=== PATIENT | male | born 1935 | race Caucasian/White ===

== ENCOUNTER 2016-04-23 12:51 | Inpatient (IN) | payer MEDICARE, OTHER ==
[~2016-04-23] VITALS: Ht 182.9 cm; Wt 80.0 kg
[~2016-04-23 12:51] MED LIST: FERROUS SU325 MG/TAB PO; FOLIC ACID 40400 MCG PO; VITAMIN C PO
[2016-05-17] MEDS ORDERED: VITAMIN C500 MG PO (12:28)
[2016-05-17] MEDS ORDERED: NORVASC 5MG5 MG/TAB PO (12:29)
[2016-06-07] VITALS (12 sets, daily range): BP systolic 114–149; BP diastolic 64–89; PULSE 51–87; TEMP 97–99
[2016-06-08] VITALS (7 sets, daily range): BP systolic 129–176; BP diastolic 67–89; PULSE 66–83; TEMP 98.1–99.9
[2016-06-08 06:12] LABS: HEMATOCRIT 39.5 % (42.0-52.0); HEMOGLOBIN 14.1 g/dl (13.5-18.0)
[2016-06-09 04:07] VITALS: BP 169/86; PULSE 87; TEMP 98.5
[2016-06-09] MEDS ORDERED: NORCO 325 MG-7.1 TAB PO (06:29)
[2016-06-09] MEDS ORDERED: ASPI325T6 PO (06:29)
[2016-06-09] MEDS ORDERED: TYLENOL 500MG500 MG PO (06:30)
[2016-06-09] MEDS ORDERED: ROXICODONE 55 MG/TAB PO (06:30)
[2016-06-09] MEDS ORDERED: COLACE 100100 MG/CAP PO (06:31)
[2016-06-09 07:10] VITALS: BP 135/80; PULSE 90; TEMP 98.6
[2016-06-09 07:38] LABS: HEMATOCRIT 37.2 % (42.0-52.0)
== END 2016-06-09 14:10 | disposition home or self-care (01) | DRG 470 ==
LOC: JCC 05-18 10:45
PROVIDERS: Orthopaedic Surgery
PROC: 0SRC0J9 Replacement of Right Knee Joint with Synthetic Substitute, Cemented, Open Approach (ICD-10-PCS; principal; 2016-06-07 07:30)
DX: M17.11 Unilateral primary osteoarthritis, right knee (principal); Z87.891 Personal history of nicotine dependence; Z85.46 Personal history of malignant neoplasm of prostate
CPT/HCPCS: A4315; A9284; C1713; C1776; J2250; J2704

== ENCOUNTER → 2016-05-17 | Outpatient (CLI) | payer MEDICARE, OTHER ==
[~2016-05-17] MED LIST changes: +ASPI325T6 PO; +COLACE 100100 MG/CAP PO; +NORCO 325 MG-7.1 TAB PO; +NORVASC 5MG5 MG/TAB PO; +ROXICODONE 55 MG/TAB PO; +TYLENOL 500MG500 MG PO; +VITAMIN C500 MG PO
== END ==
LOC: COL.LAB 13:31
DX: Z53.9 Procedure and treatment not carried out, unspecified reason (principal)

== ENCOUNTER → 2016-06-02 | Outpatient (CLI) | payer MEDICARE, OTHER | LOC: COL.LAB 13:17 | DX: Z01.812 Encounter for preprocedural laboratory examination (principal); M25.861 Other specified joint disorders, right knee ==

== ENCOUNTER → 2018-10-17 | Outpatient (CLI) | payer MEDICARE, OTHER | LOC: COL.RAD 10:55 | DX: M51.16 Intervertebral disc disorders with radiculopathy, lumbar region (principal); M41.86 Other forms of scoliosis, lumbar region ==

== ENCOUNTER → 2018-11-27 | Outpatient (CLI) | payer MEDICARE, OTHER | LOC: MHCPAIN 10:09 | DX: G89.29 Other chronic pain (principal); M47.817 Spondylosis without myelopathy or radiculopathy, lumbosacral region; M53.3 Sacrococcygeal disorders, not elsewhere classified | CPT/HCPCS: G0463 ==

== ENCOUNTER → 2018-12-11 | Outpatient (CLI) | payer MEDICARE, OTHER | LOC: MHCPAIN 11:58 | DX: M47.817 Spondylosis without myelopathy or radiculopathy, lumbosacral region (principal); M54.16 Radiculopathy, lumbar region | CPT/HCPCS: J1040; Q9967 ==

== ENCOUNTER → 2019-01-02 | Outpatient (CLI) | payer MEDICARE, OTHER | LOC: MHCPAIN 08:55 | DX: G89.29 Other chronic pain (principal); M47.817 Spondylosis without myelopathy or radiculopathy, lumbosacral region; M53.3 Sacrococcygeal disorders, not elsewhere classified | CPT/HCPCS: G0463 ==

== ENCOUNTER → 2019-01-04 | Outpatient (CLI) | payer MEDICARE, OTHER | LOC: MHCPAIN 13:01 | DX: M47.817 Spondylosis without myelopathy or radiculopathy, lumbosacral region (principal); M54.16 Radiculopathy, lumbar region ==

== ENCOUNTER → 2019-01-16 | Outpatient (CLI) | payer MEDICARE, OTHER | LOC: MHCPAIN 13:26 | DX: G89.29 Other chronic pain (principal); M47.817 Spondylosis without myelopathy or radiculopathy, lumbosacral region; M53.3 Sacrococcygeal disorders, not elsewhere classified | CPT/HCPCS: G0463 ==

== ENCOUNTER → 2019-01-18 | Outpatient (CLI) | payer MEDICARE, OTHER | LOC: MHCPAIN 07:22 | DX: M47.817 Spondylosis without myelopathy or radiculopathy, lumbosacral region (principal); M54.16 Radiculopathy, lumbar region | CPT/HCPCS: J1100; J3010 ==

== ENCOUNTER → 2019-01-25 | Outpatient (CLI) | payer MEDICARE, OTHER | LOC: MHCPAIN 07:36 | DX: M47.817 Spondylosis without myelopathy or radiculopathy, lumbosacral region (principal); M54.16 Radiculopathy, lumbar region | CPT/HCPCS: J1100; J3010 ==

== ENCOUNTER → 2019-03-19 | Outpatient (CLI) | payer MEDICARE, OTHER | LOC: MHCPAIN 10:59 | DX: M47.817 Spondylosis without myelopathy or radiculopathy, lumbosacral region (principal); M53.3 Sacrococcygeal disorders, not elsewhere classified | CPT/HCPCS: G0463 ==

== ENCOUNTER → 2019-08-29 | Outpatient (CLI) | payer MEDICARE, OTHER | LOC: MHCPAIN 11:00 | DX: M47.817 Spondylosis without myelopathy or radiculopathy, lumbosacral region (principal); M54.5 Low back pain; M53.3 Sacrococcygeal disorders, not elsewhere classified; G89.29 Other chronic pain | CPT/HCPCS: G0463 ==

== ENCOUNTER → 2020-01-16 | Outpatient (CLI) | payer MEDICARE, OTHER | LOC: MHCPAIN 10:47 | DX: M47.817 Spondylosis without myelopathy or radiculopathy, lumbosacral region (principal); M54.5 Low back pain; M53.3 Sacrococcygeal disorders, not elsewhere classified; G89.29 Other chronic pain | CPT/HCPCS: G0463 ==

== ENCOUNTER → 2020-01-17 | Outpatient (CLI) | payer MEDICARE, OTHER | LOC: MHCPAIN 10:49 | DX: M47.817 Spondylosis without myelopathy or radiculopathy, lumbosacral region (principal); M54.5 Low back pain ==

== ENCOUNTER → 2020-01-31 | Outpatient (CLI) | payer MEDICARE, OTHER | LOC: MHCPAIN 12:58 | DX: M47.817 Spondylosis without myelopathy or radiculopathy, lumbosacral region (principal); M54.5 Low back pain; G89.29 Other chronic pain | CPT/HCPCS: G0463; J2250; J3010 ==

== ENCOUNTER → 2020-02-11 | Outpatient (CLI) | payer MEDICARE, OTHER | LOC: MHCPAIN 13:42 | DX: M47.817 Spondylosis without myelopathy or radiculopathy, lumbosacral region (principal); M54.5 Low back pain | CPT/HCPCS: J3010 ==

== ENCOUNTER → 2020-05-06 | Outpatient (CLI) | payer MEDICARE, OTHER | LOC: MHCPAIN 13:33 | DX: M47.817 Spondylosis without myelopathy or radiculopathy, lumbosacral region (principal); M54.5 Low back pain; M53.3 Sacrococcygeal disorders, not elsewhere classified; G89.29 Other chronic pain | CPT/HCPCS: G0463 ==

== ENCOUNTER → 2020-09-03 | Outpatient (CLI) | payer MEDICARE, OTHER | LOC: MHCPAIN 13:13 | DX: M47.816 Spondylosis without myelopathy or radiculopathy, lumbar region (principal); M54.5 Low back pain; M53.3 Sacrococcygeal disorders, not elsewhere classified | CPT/HCPCS: G0463 ==

== ENCOUNTER 2022-03-17 13:27 | Inpatient (IN) | payer MEDICARE, OTHER ==
[~2022-03-17] VITALS: Ht 182.9 cm; Wt 86.5 kg
[2022-04-27] VITALS (11 sets, daily range): BP systolic 96–150; BP diastolic 52–76; PULSE 50–80; TEMP 97.8–98.5
[2022-04-27] MEDS ORDERED: HCTZ12.5TAB PO (06:51)
[2022-04-27] MEDS ORDERED: TOPROL XL 50MG50 MG PO (06:51)
[2022-04-27] MEDS ORDERED: COZAAR 50MG50 MG/TAB PO (06:52)
[2022-04-28 04:07] VITALS: BP 114/59; PULSE 68; TEMP 98.7
[2022-04-28 07:04] LABS: HEMATOCRIT 31.3 % (42.0-52.0); HEMOGLOBIN 10.7 g/dl (13.5-18.0)
[2022-04-28 07:35] VITALS: BP 135/70; PULSE 66; TEMP 98.2
[2022-04-28 12:02] VITALS: BP 132/66; PULSE 60; TEMP 98.4
[2022-04-28] MEDS ORDERED: ASPI325T6 PO (13:46)
[2022-04-28] MEDS ORDERED: CELEBREX 200MG200 MG PO (13:47)
[2022-04-28] MEDS ORDERED: ULTRAM 50MG TAB50 MG PO (13:47)
[2022-04-28] MEDS ORDERED: SENOKOT S 50 MG1 TAB PO (13:48)
[2022-04-28 15:53] VITALS: BP 121/57; PULSE 61; TEMP 98
== END 2022-04-28 17:00 | disposition home or self-care (01) | DRG 470 ==
LOC: INPTSU 04-27 05:23 → SURG 04-27 07:30
PROVIDERS: ADMIT Orthopaedic Surgery
PROC: 0SRB04Z Replacement of Left Hip Joint with Ceramic on Polyethylene Synthetic Substitute, Open Approach (ICD-10-PCS; principal; 2022-04-27 07:30)
DX: M16.12 Unilateral primary osteoarthritis, left hip (principal); I10 Essential (primary) hypertension; Z96.651 Presence of right artificial knee joint; K21.9 Gastro-esophageal reflux disease without esophagitis; Z86.73 Personal history of transient ischemic attack (TIA), and cerebral infarction without residual deficits; Z85.828 Personal history of other malignant neoplasm of skin; Z88.8 Allergy status to other drugs, medicaments and biological substances; Z85.46 Personal history of malignant neoplasm of prostate; Z87.891 Personal history of nicotine dependence
CPT/HCPCS: A4314; A9284; C1713; C1776; J1100; J2250; J2370; J2405; J2704; J3010; J7120